=== PATIENT | male | born 1995 | race Two or more races ===

== ENCOUNTER 2020-05-19 02:00 | Emergency (ER) | payer OTHER ==
[~2020-05-19] VITALS: Ht 170.2 cm; Wt 65.8 kg
[2020-05-19] MEDS ORDERED: ORPHENADRINE C100 MG PO (04:32)
[2020-05-19] MEDS ORDERED: KETO10TA2 PO (04:32)
[2020-05-19] MEDS ORDERED: TYLENOL325 MG (06:15)
== END 2020-05-19 05:28 | disposition home or self-care (01) ==
LOC: ER 02:00
DX: D17.0 Benign lipomatous neoplasm of skin and subcutaneous tissue of head, face and neck (principal); R59.0 Localized enlarged lymph nodes; M54.2 Cervicalgia; M62.838 Other muscle spasm
CPT/HCPCS: 70491; Q9965

== ENCOUNTER 2021-05-23 16:09 | Emergency (ER) | payer OTHER ==
[~2021-05-23] VITALS: Ht 170.2 cm; Wt 68.0 kg
[~2021-05-23 16:09] MED LIST: KETO10TA2 PO; ORPHENADRINE C100 MG PO; TYLENOL325 MG
== END 2021-05-23 20:47 | disposition home or self-care (01) ==
LOC: ER 16:09
DX: M94.0 Chondrocostal junction syndrome [Tietze] (principal)

== ENCOUNTER 2021-05-31 15:31 | Emergency (ER) | payer OTHER ==
[~2021-05-31] VITALS: Ht 170.2 cm; Wt 68.0 kg
== END 2021-05-31 17:13 | disposition home or self-care (01) ==
LOC: ER 15:31
DX: S01.82XA Laceration with foreign body of other part of head, initial encounter (principal); W45.8XXA Other foreign body or object entering through skin, initial encounter; Y93.89 Activity, other specified; Y92.89 Other specified places as the place of occurrence of the external cause; Y99.8 Other external cause status

== ENCOUNTER 2021-06-06 17:11 | Emergency (ER) | payer OTHER ==
[~2021-06-06] VITALS: Ht 170.2 cm; Wt 68.0 kg
== END 2021-06-06 18:51 | disposition home or self-care (01) ==
LOC: ER 17:11
DX: Z48.02 Encounter for removal of sutures (principal)

== ENCOUNTER 2022-05-21 09:55 | Emergency (ER) | payer OTHER ==
[~2022-05-21] VITALS: Ht 170.2 cm; Wt 68.0 kg
== END 2022-05-21 15:00 | disposition home or self-care (01) ==
LOC: ER 09:55
DX: M54.50 Low back pain, unspecified (principal)

== ENCOUNTER 2022-05-21 17:20 | Emergency (ER) | payer OTHER ==
[~2022-05-21] VITALS: Ht 170.2 cm; Wt 68.0 kg
== END 2022-05-21 19:26 | disposition home or self-care (01) ==
LOC: ER 17:20
DX: R10.30 Lower abdominal pain, unspecified (principal)

== ENCOUNTER 2022-05-26 22:15 | Emergency (ER) | payer OTHER ==
[~2022-05-26] VITALS: Ht 175.3 cm; Wt 74.8 kg
[2022-05-27] MEDS ORDERED: ACETAMINOPHEN650 M2 PO (02:42)
[2022-05-27] MEDS ORDERED: NORFLEX100MG PO (02:42)
== END 2022-05-27 02:54 | disposition home or self-care (01) ==
LOC: ER 22:15
DX: R10.32 Left lower quadrant pain (principal); M54.50 Low back pain, unspecified

== ENCOUNTER 2022-06-20 11:07 | Emergency (ER) | payer OTHER ==
[~2022-06-20] VITALS: Ht 170.2 cm; Wt 65.8 kg
[~2022-06-20 11:07] MED LIST changes: +ACETAMINOPHEN650 M2 PO; +NORFLEX100MG PO
== END 2022-06-20 16:53 | disposition home or self-care (01) ==
LOC: ER 11:07
DX: A09 Infectious gastroenteritis and colitis, unspecified (principal); E86.0 Dehydration; R10.84 Generalized abdominal pain